=== PATIENT | female | born 1995 | race Hispanic/Latino ===

== ENCOUNTER 2018-07-28 13:06 | Inpatient (IN) | payer MEDICAID ==
[2018-07-28] MEDS ORDERED: ZOFRAN IV PRN (15:46)
[2018-07-28] MEDS ORDERED: MINERAL OIL PO PRN (15:46)
[2018-07-28] MEDS ORDERED: XYLOCAINE 2% INFILTRATI ONE (15:46)
[2018-07-28] MEDS ORDERED: BRETHINE SUB-Q PRN (15:46)
--- NOTE | 2018-07-28 15:53 | History and Physical Report ---
History of Present Illness Date of examination: 07/28/18 (pt presents with SROM last evening) History of present illness: EDC Confirmation: 08/01/2018 Gestational Age: 16 5/7 weeks Past History : 3 Para: 0 Aborta: 2 Elect. Ab: 2 Spont. 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 of genital herpes: no Partner hx. of genital herpes: no Rash, Viral, or Febrile illness since last LMP? no Varicella/Chicken Pox Status: Immunized Genetic History Congenital Heart Defect: Mom: no Dad: no Danelle Disease: Mom: no Dad: no Thalassemia Mom: no Dad: no Neural Tube Defect Mom: no Dad: no Down's Syndrome Mom: yes Dad: no Comments: pt's brother (mother was AMA) Anthony-Sachs Mom: no Dad: no Sickle Cell Disease/Trait Mom: no Dad: no Hemophilia Mom: no Dad: no Muscular Dystrophy Mom: no Dad: no Cystic Fibrosis Mom: no Dad: no [place] Chorea Mom: no Dad: no Mental Retardation Mom: no Dad: no Fragile X Mom: no Dad: no Other Genetic/Chromosomal Disorder Mom: no Dad: no Child w/other defect Mom: no Dad: no Enviromental Exposures Xray Exposure: no Medication, drug, or alcohol use since LMP: no Chemical/Other Exposure: no Exposure to Cat Liter: no Hx of Parvovirus (Fifth Disease): no Occupational Exposure to Children: none Current Allergies (reviewed today): No known allergies Past History - Obstetrical History Expected Date of Delivery: 08/01/18 Actual Gestation: 39 Week(s) 3 Day(s) : 3 Para: 0 Hx # Term Pregnancies: 0 Number of Pregnancies: 0 Spontaneous Abortions: 0 Induced : 2 Number of Living Children: 0 Medications and Allergies Allergies Allergy/AdvReac Type Severity Reaction Status Date / Time No Known Allergies Allergy Unverified 07/28/18 13:47 Home Medications Medication Instructions Recorded Confirmed Last Taken Type Gummies 2 tab PO QDAY 07/28/18 07/28/18 1 Month Ago History ~06/28/18 - Vital Signs Vital signs: Vital Signs Pulse BP 90 118/60 07/28/18 13:52 07/28/18 13:52 Temp Pulse Resp BP Pulse Ox 90 118/60 07/28/18 13:52 07/28/18 13:52 - Physical Exam Breasts: Positive: deferred Cardiovascular: Regular rate, Normal S1, Normal S2 Lungs: Positive: Normal air movement Abdomen: Positive: normal appearance, soft, normal bowel sounds. Negative: distention, tenderness Genitourinary (Female): Positive: normal external genitalia Vulva: both: normal Vagina: Positive: normal moisture. Negative: discharge Cervix: Negative: lesion, discharge Uterus: Positive: normal size, normal contour Adnexa: both: normal Anus/Rectum: Positive: normal perianal skin, heme negative. Negative: rectal mass, hemorrhoids Extremities: Positive: normal Deep Tendon Reflex Grade: Normal +2 - Obstetrical FHR: category 1 Uterine Contraction Monitor Mode: External Cervical Dilatation: 0.5 (per senior health educator) Cervical Effacement Percentage: 50 (no fluid noted on her exam) station: -3 Uterine Contraction Pattern: Irregular Uterine Tone Measurement Phase: Resting Uterine Contraction Intensity: Mild Results All other labs normal. Strep Gp B DUNCAN Negative HBsAg Screen Negative Negative *1 RPR Non Reactive Non Reactive *2 Rubella Antibodies, IgG 6.22 index Immune >0.99 *3 Non-immune <0.90 Equivocal 0.90 - 0.99 Immune >0.99 ABO Grouping O *4 Rh Factor Positive *5 Please note: Prior records for this patient's ABO / Rh type are not available for additional verification. Antibody Screen Negative Negative *6 WBC [H] 11.0 x10E3/uL 3.4-10.8 *7 RBC 3.85 x10E6/uL 3.77-5.28 *8 Hemoglobin 11.5 g/dL 11.1-15.9 *9 Hematocrit 35.2 % 34.0-46.6 *10 MCV 91 fL 79-97 *11 MCH 29.9 pg 26.6-33.0 *12 MCHC 32.7 g/dL 31.5-35.7 *13 RDW 14.1 % 12.3-15.4 *14 Platelets 282 x10E3/uL 150-379 *15 Neutrophils 70 % Not Estab. *16 Lymphs 19 % Not Estab. *17 Monocytes 7 % Not Estab. *18 Eos 3 % Not Estab. *19 Basos 0 % Not Estab. *20 ! Immature Cells <No Reported Value> *21 Neutrophils (Absolute) [H] 7.8 x10E3/uL 1.4-7.0 *22 Lymphs (Absolute) 2.1 x10E3/uL 0.7-3.1 *23 Monocytes(Absolute) 0.7 x10E3/uL 0.1-0.9 *24 Eos (Absolute) 0.3 x10E3/uL 0.0-0.4 *25 Baso (Absolute) 0.0 x10E3/uL 0.0-0.2 *26 ! Immature Granulocytes 1 % Not Estab. *27 ! Immature Grans (Abs) 0.1 x10E3/uL 0.0-0.1 *28 ! NRBC <No Reported Value> *29 Hematology Comments: <No Reported Value> *30 Tests: (2) Gest. Diabetes 1-Hr Screen (010509) ! Gestational Diabetes Screen 113 mg/dL 65-139 *31 According to ADA, a glucose threshold of >139 mg/dL after 50-gram load identifies approximately 80% of women with gestational diabetes mellitus, while the sensitivity is further increased to approximately 90% by a threshold of >129 mg/dL. Tests: (3) HB Solu + Rflx [facility] (352962) Hemoglobin (Hgb) Solubility Negative Negative *32 Tests: (4) HCV Ab w/Rflx to Verification (997300) ! HCV Ab <0.1 s/co ratio 0.0-0.9 *33 Tests: (5) Comment: (834913) ! Comment: SPR *34 Non reactive HCV antibody screen is consistent with no HCV infection, unless recent infection is suspected or other evidence exists to indicate HCV infection. Tests: (6) Panel 809105 ([id number]) HIV Screen 4th Generation wRfx Non Reactive Non Reactive *35 Assessment and Plan 23yo @ 39 weeks with SROM last evening Presented to L&D .5cm dilated and no evidence of fluid US done ASYA 3 BPP 6/8 NST reactive Admitted to L&D for augmentation of labor Will start with Cervidil to ripen the cervix. POC discussed with pt All questions addressed. Orders in EMR. made aware
[2018-07-28] MEDS ORDERED: PITOCin/NS 20 UNIT/1000ML DRIP 20 UNITS/1,000 ML BAG IV SCH (16:00)
[2018-07-28] MEDS ORDERED: AMBIEN PO PRN (16:29)
[2018-07-28 17:06] LABS: Hemoglobin 12.9 gm/dl (10.1-14.3); Mean Corpuscular HGB Conc 34 % (30-34); Mean Corpuscular Hemoglobin 30 pg (28-32); Mean Corpuscular Volume 89 fl (79-97); Platelet Count 270 K/mm3 (140-440); Red Blood Count 4.25 M/mm3 (3.65-5.03); Red Cell Distribution Width 14.7 % (13.2-15.2)
--- NOTE | 2018-07-28 17:21 | Ultrasound Report ---
FINAL REPORT EXAM: US OB LIMITED HISTORY: ROM TECHNIQUE: Grayscale and color doppler ultrasound of the fetus was performed for biophysical profile. PRIORS: None. FINDINGS: A single, live intrauterine fetus is present in cephalic presentation with a heart rate of 136 beats per minute. The amniotic fluid index is 3.8 centimeters. Biophysical profile score of 6 out of 8 was noted. A score of 0 out of 2 was given for breathing. Scores of 2 out of 2 were given for tone, movement and amniotic fluid volume. IMPRESSION: 1. Biophysical profile score of 6 out of 8. Score of 0 out of 2 given for breathing. 2. Oligohydramnios with an amniotic fluid index of 3.8 centimeters. Findings were discussed with CIARAN Edwards at 2:20 p.m. PST on 07/28/2018.
--- NOTE | 2018-07-28 17:22 | Ultrasound Report ---
FINAL REPORT EXAM: US OB BPP WO NON-STRESS HISTORY: loss of fluid/ TECHNIQUE: Grayscale and color doppler ultrasound of the fetus was performed for biophysical profile. PRIORS: None. FINDINGS: A single, live intrauterine fetus is present in cephalic presentation with a heart rate of 136 beats per minute. The amniotic fluid index is 3.8 centimeters. Biophysical profile score of 6 out of 8 was noted. A score of 0 out of 2 was given for breathing. Scores of 2 out of 2 were given for tone, movement and amniotic fluid volume. IMPRESSION: 1. Biophysical profile score of 6 out of 8. Score of 0 out of 2 given for breathing. 2. Oligohydramnios with an amniotic fluid index of 3.8 centimeters. Findings were discussed with CIARAN Edwards at 2:20 p.m. PST on 07/28/2018.
[2018-07-28] MEDS ORDERED: CERVIDIL VG ONE (18:00)
[2018-07-29] MEDS ORDERED: PITOCin/NS 30 UNIT/500ML 30 UNITS/500 ML BAG IV SCH ×2 (06:00→07:00)
[2018-07-29] MEDS: SUBLIMAZE IV PRN ×2 (06:18→07:38)
[2018-07-29] MEDS: LACTATED RINGERS 1,000 ML IV SCH ×3 (06:21→09:20)
[2018-07-29] MEDS: POLYCILLIN/NS 2 GM/100 ML 2 GM/100 ML BAG IV SCH ×3 (07:25→22:54)
--- NOTE | 2018-07-29 07:26 | Progress Note ---
Assessment and Plan pt requests epidural SVE 3,90,-1 Internals placed. Pitocin infusing Ampicillin started Bolus for epidural started. Re-eval after epidural is placed. made aware. - Patient Problems (1) Prolonged rupture of membranes Onset Date: ~07/28/18 Current Visit: Yes Status: Acute Plan to address problem: will start Ampicillin 2gm q6hr Subjective - Subjective Date of service: 07/29/18 (pt requesting epidural) Interval history: EDC Confirmation: 08/01/2018 Gestational Age: 16 5/7 weeks Past History : 3 Para: 0 Aborta: 2 Elect. Ab: 2 Spont. 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 of genital herpes: no Partner hx. of genital herpes: no Rash, Viral, or Febrile illness since last LMP? no Varicella/Chicken Pox Status: Immunized Genetic History Congenital Heart Defect: Mom: no Dad: no Danelle Disease: Mom: no Dad: no Thalassemia Mom: no Dad: no Neural Tube Defect Mom: no Dad: no Down's Syndrome Mom: yes Dad: no Comments: pt's brother (mother was AMA) Anthony-Sachs Mom: no Dad: no Sickle Cell Disease/Trait Mom: no Dad: no Hemophilia Mom: no Dad: no Muscular Dystrophy Mom: no Dad: no Cystic Fibrosis Mom: no Dad: no [place] Chorea Mom: no Dad: no Mental Retardation Mom: no Dad: no Fragile X Mom: no Dad: no Other Genetic/Chromosomal Disorder Mom: no Dad: no Child w/other defect Mom: no Dad: no Enviromental Exposures Xray Exposure: no Medication, drug, or alcohol use since LMP: no Chemical/Other Exposure: no Exposure to Cat Liter: no Hx of Parvovirus (Fifth Disease): no Occupational Exposure to Children: none Current Allergies (reviewed today): No known allergies Patient reports: movement normal Objective - Vital Signs Vital Signs: Vital Signs - 12hr 07/28/18 07/29/18 07/29/18 22:38 02:36 02:37 Temperature 97.8 F 97.6 F Pulse Rate 80 79 110 H Respiratory 16 16 Rate Blood Pressure 114/72 Blood Pressure 123/66 114/72 [Right] O2 Sat by Pulse 96 97 Oximetry 07/29/18 07/29/18 07/29/18 02:42 06:18 06:33 Temperature 98.8 F Pulse Rate 99 H 81 Respiratory 18 18 Rate Blood Pressure Blood Pressure 119/64 [Right] O2 Sat by Pulse 96 Oximetry 07/29/18 07/29/18 07/29/18 06:35 07:04 07:13 Temperature 97.8 F Pulse Rate 81 78 Respiratory Rate Blood Pressure 119/64 123/68 Blood Pressure [Right] O2 Sat by Pulse Oximetry 07/29/18 07:18 Temperature Pulse Rate 78 Respiratory Rate Blood Pressure 122/69 Blood Pressure [Right] O2 Sat by Pulse Oximetry - Exam Breasts: deferred Cardiovascular: Regular rate Lungs: Normal air movement Abdomen: Present: normal appearance, soft. Absent: distention, tenderness Uterus: Present: normal FHR: auscultation normal, category 1 Uterine Contraction Monitor Mode: Internal Cervical Dilatation: 3 (ISE/IUPC placed) Cervical Effacement Percentage: 90 station: -1 Uterine Contraction Pattern: Regular Uterine Tone Measurement Phase: Resting Uterine Contraction Intensity: Moderate Extremities: normal Deep Tendon Reflex Grade: Normal +2 - Labs Labs: Laboratory Results - last 24 hr 07/28/18 07/28/18 16:45 16:45 WBC 11.0 RBC 4.25 Hgb 12.9 Hct 38.0 MCV 89 MCH 30 MCHC 34 RDW 14.7 Plt Count 270 Blood Type O POSITIVE Antibody Screen Negative
[2018-07-29] MEDS ORDERED: NARCAN 2 MG/2 ML IV PRN (09:10)
[2018-07-29] MEDS ORDERED: fentaNYL-BUPIV 2 MCG/ML-0.125% 200 MCG/100 ML BAG EPIDURAL SCH (10:00)
--- NOTE | 2018-07-29 10:20 | Progress Note ---
Assessment and Plan pt comfortable with epidural SVE 8,100,0 FHR cat 1 now with acceleration good variability Pit @ 10 will hold there Anticipate delivery - Patient Problems (1) Prolonged rupture of membranes Onset Date: ~07/28/18 Current Visit: Yes Status: Acute Subjective - Subjective Date of service: 07/29/18 (prolong variable ) Interval history: EDC Confirmation: 08/01/2018 Gestational Age: 16 5/7 weeks Past History : 3 Para: 0 Aborta: 2 Elect. Ab: 2 Spont. 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 of genital herpes: no Partner hx. of genital herpes: no Rash, Viral, or Febrile illness since last LMP? no Varicella/Chicken Pox Status: Immunized Genetic History Congenital Heart Defect: Mom: no Dad: no Danelle Disease: Mom: no Dad: no Thalassemia Mom: no Dad: no Neural Tube Defect Mom: no Dad: no Down's Syndrome Mom: yes Dad: no Comments: pt's brother (mother was AMA) Anthony-Sachs Mom: no Dad: no Sickle Cell Disease/Trait Mom: no Dad: no Hemophilia Mom: no Dad: no Muscular Dystrophy Mom: no Dad: no Cystic Fibrosis Mom: no Dad: no [place] Chorea Mom: no Dad: no Mental Retardation Mom: no Dad: no Fragile X Mom: no Dad: no Other Genetic/Chromosomal Disorder Mom: no Dad: no Child w/other defect Mom: no Dad: no Enviromental Exposures Xray Exposure: no Medication, drug, or alcohol use since LMP: no Chemical/Other Exposure: no Exposure to Cat Liter: no Hx of Parvovirus (Fifth Disease): no Occupational Exposure to Children: none Current Allergies (reviewed today): No known allergies Patient reports: movement normal Objective - Vital Signs Vital Signs: Vital Signs - 12hr 07/28/18 07/29/18 07/29/18 22:38 02:36 02:37 Temperature 97.8 F 97.6 F Pulse Rate 80 79 110 H Respiratory 16 16 Rate Blood Pressure 114/72 Blood Pressure 123/66 114/72 [Right] O2 Sat by Pulse 96 97 Oximetry 07/29/18 07/29/18 07/29/18 02:42 06:18 06:33 Temperature 98.8 F Pulse Rate 99 H 81 Respiratory 18 18 Rate Blood Pressure Blood Pressure 119/64 [Right] O2 Sat by Pulse 96 Oximetry 07/29/18 07/29/18 07/29/18 06:35 07:04 07:13 Temperature 97.8 F Pulse Rate 81 78 78 Respiratory 20 Rate Blood Pressure 119/64 123/68 Blood Pressure 120/63 [Right] O2 Sat by Pulse 96 Oximetry 07/29/18 07/29/18 07/29/18 07:18 07:28 07:29 Temperature Pulse Rate 78 100 H 83 Respiratory Rate Blood Pressure 122/69 120/63 Blood Pressure [Right] O2 Sat by Pulse 96 Oximetry 07/29/18 07/29/18 07/29/18 07:33 07:38 07:49 Temperature Pulse Rate 77 80 Respiratory 16 Rate Blood Pressure 122/72 127/75 Blood Pressure [Right] O2 Sat by Pulse Oximetry 07/29/18 07/29/18 07/29/18 08:03 08:08 08:19 Temperature Pulse Rate 78 87 Respiratory 16 Rate Blood Pressure 122/68 130/60 Blood Pressure [Right] O2 Sat by Pulse Oximetry 07/29/18 07/29/18 07/29/18 08:33 08:48 09:01 Temperature Pulse Rate 83 77 105 H Respiratory Rate Blood Pressure 124/61 135/65 109/55 Blood Pressure [Right] O2 Sat by Pulse Oximetry 07/29/18 07/29/18 07/29/18 09:02 09:03 09:06 Temperature Pulse Rate 99 H 100 H 120 H Respiratory Rate Blood Pressure 109/59 117/68 Blood Pressure [Right] O2 Sat by Pulse 99 Oximetry 07/29/18 07/29/18 07/29/18 09:07 09:09 09:11 Temperature Pulse Rate 113 H 105 H 111 H Respiratory Rate Blood Pressure 110/63 117/68 115/69 Blood Pressure [Right] O2 Sat by Pulse 98 Oximetry 07/29/18 07/29/18 07/29/18 09:12 09:13 09:15 Temperature Pulse Rate 118 H 116 H 106 H Respiratory Rate Blood Pressure 117/64 117/61 Blood Pressure [Right] O2 Sat by Pulse 100 Oximetry 07/29/18 07/29/18 07/29/18 09:17 09:19 09:21 Temperature Pulse Rate 99 H 122 H 112 H Respiratory Rate Blood Pressure 116/58 115/63 117/71 Blood Pressure [Right] O2 Sat by Pulse 99 Oximetry 07/29/18 07/29/18 07/29/18 09:22 09:23 09:27 Temperature Pulse Rate 111 H 108 H 117 H Respiratory Rate Blood Pressure 111/65 Blood Pressure [Right] O2 Sat by Pulse 99 100 Oximetry 07/29/18 07/29/18 07/29/18 09:32 09:37 09:42 Temperature Pulse Rate 105 H 98 H 98 H Respiratory Rate Blood Pressure Blood Pressure [Right] O2 Sat by Pulse 99 98 99 Oximetry 07/29/18 07/29/18 07/29/18 09:47 09:52 09:54 Temperature Pulse Rate 115 H 99 H 111 H Respiratory Rate Blood Pressure 113/68 Blood Pressure [Right] O2 Sat by Pulse 100 98 Oximetry 07/29/18 07/29/18 07/29/18 09:57 10:00 10:02 Temperature Pulse Rate 94 H 107 H 109 H Respiratory Rate Blood Pressure Blood Pressure [Right] O2 Sat by Pulse 96 90 96 Oximetry 07/29/18 07/29/18 07/29/18 10:07 10:12 10:17 Temperature Pulse Rate 122 H 101 H 98 H Respiratory Rate Blood Pressure Blood Pressure [Right] O2 Sat by Pulse 78 L 68 L 98 Oximetry - Exam Breasts: deferred Cardiovascular: Regular rate Lungs: Normal air movement Abdomen: Present: normal appearance, soft. Absent: distention, tenderness Uterus: Present: normal FHR: auscultation normal, category 2 (resolved with position change to Cat 1) Uterine Contraction Monitor Mode: Internal Cervical Dilatation: 8 (bloody show) Cervical Effacement Percentage: 100 station: 0 Uterine Contraction Pattern: Regular Uterine Tone Measurement Phase: Resting Uterine Contraction Intensity: Moderate Extremities: normal Deep Tendon Reflex Grade: Normal +2 - Labs Labs: Laboratory Results - last 24 hr 07/28/18 07/28/18 16:45 16:45 WBC 11.0 RBC 4.25 Hgb 12.9 Hct 38.0 MCV 89 MCH 30 MCHC 34 RDW 14.7 Plt Count 270 Blood Type O POSITIVE Antibody Screen Negative
[2018-07-29] MEDS ORDERED: LANSINOH TP PRN (11:30)
[2018-07-29] MEDS ORDERED: BENADRYL PO PRN (11:30)
[2018-07-29] MEDS ORDERED: TYLENOL PO PRN (11:30)
[2018-07-29] MEDS ORDERED: DULCOLAX PR PRN (11:30)
[2018-07-29] MEDS ORDERED: TUCKS PAD TP PRN (11:30)
[2018-07-29] MEDS ORDERED: MILK OF MAGNESIA PO PRN (11:30)
[2018-07-29] MEDS ORDERED: PHENERGAN PO PRN (11:30)
--- NOTE | 2018-07-29 11:50 | Procedure Note ---
OB Delivery Note - Delivery Date of Delivery: 07/29/18 Service Center Supervisor: CINDI GREENWOOD Estimated blood loss: 300cc - Vaginal Delivery presentation: vertex Delivery position: OA Intrapartum events: PROM->1hr before delivery Delivery induction: cervidil Delivery augmentation: pitocin Delivery monitor: internal FHT, internal uterine Route of delivery: Delivery placenta: spontaneous Delivery cord: 3 umbilical vessels Episiotomy: none Delivery laceration: none Anesthesia: epidural Delivery comments: live born male over intact perineum Baby placed skin to skin on mom's abdomen Cord blood obtaine Placenta and membrane del complete and intact, 3 vessel cord. Pit IVFs Placenta to pathology. 8/9, EBL 300, Wgt 6-13. Mom and baby remain LDR stable. - A at 1 minute: 8 at 5 minutes: 9 Gender: Male (wgt 6-13)
[2018-07-29] MEDS ORDERED: SODIUM CHLORIDE FLUSH SYRINGE 10 ML IV NR (12:00)
[2018-07-29] MEDS: MOTRIN PO SCH ×3 (20:57→23:38)
[2018-07-29] MEDS: COLACE PO SCH (22:22)
[2018-07-29] MEDS ORDERED: POLYCILLIN/NS 2 GM/100 ML 2 GM/100 ML BAG IV SCH (23:00)
[2018-07-29 23:49] LABS: Hemoglobin 11.3 gm/dl (10.1-14.3)
[2018-07-30] MEDS: MOTRIN PO SCH (05:56)
[2018-07-30] MEDS ORDERED: BOOSTRIX IM ONE ×2 (06:00→11:30)
--- NOTE | 2018-07-30 08:34 | Discharge Summary ---
Providers - Providers Date of Admission: 07/28/18 13:07 Date of discharge: 07/30/18 Attending physician: ERIC QUINTERO Primary care physician: ERIC QUINTERO Hospitalization Reason for admission: active labor Delivery: Episiotomy: none Laceration: none Other procedures: none Discharge diagnosis: IUP at term delivered [place] baby: male Hospital course: Patient was admitted underwent a normal spontaneous vaginal delivery. Her course was benign. She was afebrile throughout her stay. Her day 1 hematocrit was 33%. Patient is both breast and bottlefeeding and desired oral contraceptives. Patient desires discharge today. Condition at discharge: Good Disposition: DC-01 TO HOME OR SELFCARE - Discharge Diagnoses (1) Cigarette smoker Status: Chronic (2) Normal spontaneous vaginal delivery Status: Resolved (3) Spontaneous rupture of membranes Status: Resolved Plan - Discharge Medications Prescriptions: Lidocain2.5%/Prilocai2.5% [Emla] 5 gm TP PRN #1 tube RX: Ibuprofen [Motrin 800 MG tab] 800 mg PO TID PRN #30 tablet PRN Reason: Pain - Provider Discharge Summary Activity: routine, no sex for 6 weeks Diet: routine Instructions: routine Additional instructions: [] Smoking cessation referral if applicable(refer to patient education folder for contact #) [] Refer to [facility] Booklet Call your doctor immediately for: * Fever > 100.5 * Heavy vaginal bleeding ( >1 pad per hour) * Severe persistent headache * Shortness of breath * Reddened, hot, painful area to leg or breast *Patient to call the office to schedule son's circumcision and follow-up in 6 weeks for - Follow up plan Follow up: ERIC QUINTERO MD [Primary Care Provider] - 7 Days
[2018-07-30] MEDS: COLACE PO SCH (09:34)
[2018-07-30] MEDS ORDERED: PRENATAL VITAMIN PO SCH (10:00)
[2018-07-30] MEDS ORDERED: M-M-R II VACCINE SUB-Q ONE (11:30)
[2018-07-30 16:29] VITALS: BP 105/42
== END 2018-07-30 22:07 | disposition home or self-care (01) | DRG 775 ==
LOC: TRG 13:06 → LD 13:07 → TRG 15:51 → OB 07-29 14:07
PROVIDERS: ADMIT Obstetrics & Gynecology; ATTEND Obstetrics & Gynecology
PROC: 10E0XZZ Delivery of Products of Conception, External Approach (ICD-10-PCS; principal; 2018-07-29)
PROC: 3E033VJ Introduction of Other Hormone into Peripheral Vein, Percutaneous Approach (ICD-10-PCS; 2018-07-29)
PROC: 3E0R3BZ Introduction of Anesthetic Agent into Spinal Canal, Percutaneous Approach (ICD-10-PCS; 2018-07-29)
PROC: 00HU33Z Insertion of Infusion Device into Spinal Canal, Percutaneous Approach (ICD-10-PCS; 2018-07-29)
PROC: 3E0234Z Introduction of Serum, Toxoid and Vaccine into Muscle, Percutaneous Approach (ICD-10-PCS; 2018-07-29)
DX: O42.02 Full-term premature rupture of membranes, onset of labor within 24 hours of rupture (principal); Z3A.39 39 weeks gestation of pregnancy; Z37.0 Single live birth; Z23 Encounter for immunization; Z83.3 Family history of diabetes mellitus; O99.334 Smoking (tobacco) complicating childbirth; F17.210 Nicotine dependence, cigarettes, uncomplicated
CPT/HCPCS: 36415; 76815; 76819; 85014; 85018; 85027; 86592; 86850; 86900; 86901; 88307; 90715; J0290; J2590; J3010; J7120